=== PATIENT | male | born 1995 | race Caucasian/White ===

== ENCOUNTER 2022-11-21 14:41 | Emergency (ER) | payer MEDICAID ==
[2022-11-21] MEDS ORDERED: Acetaminophen 325 MG Tab PO ONE (17:04)
== END 2022-11-21 18:10 | disposition home or self-care (01) ==
LOC: JD.ED 14:41
DX: S52.124A Nondisplaced fracture of head of right radius, initial encounter for closed fracture (principal); W00.9XXA Unspecified fall due to ice and snow, initial encounter
CPT/HCPCS: 29125; 73060; 73090; 99283; A9270